=== PATIENT | male | born 1995 | race Caucasian/White ===

== ENCOUNTER 2018-03-22 14:16 | Emergency (ER) | payer SELFPAY ==
[~2018-03-22] VITALS: Ht 185.4 cm; Wt 77.1 kg
[2018-03-22 15:27] LABS: BASO # 0.1 x10^3/uL (0.0-0.2); BASO % 1 % (0-3); EOS # 0.2 x10^3/uL (0.0-0.7); EOS % 4 % (0-3); HEMATOCRIT 42.3 % (39.0-53.0); HEMOGLOBIN 14.6 g/dL (13.0-17.5); LYMPH # 1.9 x10^3/uL (1.0-4.8); LYMPH % 41 % (24-48); MEAN CORPUSCULAR HEMOGLOBIN 31 pg (25-35); MEAN CORPUSCULAR HGB CONC 35 g/dL (31-37); MEAN CORPUSCULAR VOLUME 89 fL (79-100); MONO # 0.4 x10^3/uL (0.0-1.1); MONO % 9 % (0-9); NEUT # 2.2 x10^3uL (1.8-7.7); NEUT % 46 % (31-73); PLATELET COUNT 234 x10^3/uL (140-400); RED BLOOD COUNT 4.74 x10^6/uL (4.30-5.70); RED CELL DISTRIBUTION WIDTH 14.1 % (11.5-14.5); WHITE BLOOD COUNT 4.8 x10^3/uL (4.0-11.0)
[2018-03-22 15:37] LABS: CALCIUM 9.3 mg/dL (8.5-10.1); CREATININE 1.1 mg/dL (0.7-1.3); GFR 84.5; POTASSIUM 3.5 mmol/L (3.5-5.1)
[2018-03-22 15:43] LABS: ALBUMIN 4.6 g/dL (3.4-5.0); ALBUMIN/GLOBULIN RATIO 1.3 (1.0-1.7); TOTAL BILIRUBIN 0.4 mg/dL (0.2-1.0); TOTAL PROTEIN 8.2 g/dL (6.4-8.2)
[2018-03-22 16:43] LABS: PROTHROMBIN TIME PATIENT 13.7 SEC (11.7-14.0)
[2018-03-22 17:15] VITALS: BP 127/77
[2018-03-22 17:19] LABS: BARBITURATES NEG (NEG); BENZODIAZEPINES POS (NEG); CANNABINOIDS POS (NEG); COCAINE POS (NEG); METHADONE NEG (NEG); OPIATES NEG (NEG); PHENCYCLIDINE NEG (NEG)
[2018-03-22 17:22] LABS: AMPHETAMINE/METHAMPHETAMINE NEG (NEG)
--- NOTE | 2018-03-22 17:24 | PHYS DOC ---
Past Medical History Past Medical History: Anxiety, Seizure, Other Additional Past Medical Histor: COCAINE OVERDOSE Past Surgical History: No Surgical History Alcohol Use: Heavy Drug Use: Cocaine, Marijuana Social History Narrative: "LEAN" Adult General Chief Complaint Chief Complaint: HEMATEMESIS/VOMITING BLOOD HPI HPI 22-year-old male presenting with vomiting blood. He says he has been throwing up or looks like tobacco so she's been having black stool. He says "is that bad " He's been drinking alcohol fairly heavily he says he has to drink everyday to go outside he is anxiety he gets depressed he try to hurt himself last year he is not currently suicidal but he would like to talk to a therapist. Review of Systems Review of Systems Review of systems otherwise noted except as noted in the history of present illness specifically no chest pain no shortness of breath really no abdominal pain just the vomiting and the dark stool per his report he refused rectal examination he denies dysuria he denies suicidal ideation at this time Current Medications Current Medications No daily medications denies previous medical history does drink heavily. Physical Exam Physical Exam General physical examination well-appearing. No apparent distress Respiratory normal work of breathing no increased work of breathing no chest wall tenderness or crepitus HEENT moist mucous membranes trach is in the midline no trauma was seen Abdomen soft nontender nondistended patient refused rectal examination no masses were identified Extremities there is no edema no trauma no cyanosis no asymmetry Skin warm well perfused dry no rash multiple tattoos Psych calm and cooperative depressed denies SI Eyes pupils equal round and reactive to light extraocular movements intact Current Patient Data Vital Signs Vital Signs Date Time Temp Pulse Resp B/P (MAP) Pulse Ox O2 Delivery O2 Flow Rate FiO2 03/22/18 14:30 98.4 69 19 140/72 (94) 100 Room Air 98.4 Lab Values Laboratory Tests Test 03/22/18 15:19 03/22/18 15:56 03/22/18 17:04 White Blood Count 4.8 x10^3/uL (4.0-11.0) Red Blood Count 4.74 x10^6/uL (4.30-5.70) Hemoglobin 14.6 g/dL (13.0-17.5) Hematocrit 42.3 % (39.0-53.0) Mean Corpuscular Volume 89 fL (79-100) Mean Corpuscular Hemoglobin 31 pg (25-35) Mean Corpuscular Hemoglobin Concent 35 g/dL (31-37) Red Cell Distribution Width 14.1 % (11.5-14.5) Platelet Count 234 x10^3/uL (140-400) Neutrophils (%) (Auto) 46 % (31-73) Lymphocytes (%) (Auto) 41 % (24-48) Monocytes (%) (Auto) 9 % (0-9) Eosinophils (%) (Auto) 4 % (0-3) H Basophils (%) (Auto) 1 % (0-3) Neutrophils # (Auto) 2.2 x10^3uL (1.8-7.7) Lymphocytes # (Auto) 1.9 x10^3/uL (1.0-4.8) Monocytes # (Auto) 0.4 x10^3/uL (0.0-1.1) Eosinophils # (Auto) 0.2 x10^3/uL (0.0-0.7) Basophils # (Auto) 0.1 x10^3/uL (0.0-0.2) Sodium Level 146 mmol/L (136-145) H Potassium Level 3.5 mmol/L (3.5-5.1) Chloride Level 106 mmol/L (98-107) Carbon Dioxide Level 29 mmol/L (21-32) Anion Gap 11 (6-14) Blood Urea Nitrogen 11 mg/dL (8-26) Creatinine 1.1 mg/dL (0.7-1.3) Estimated GFR (Cockcroft-Gault) 84.5 BUN/Creatinine Ratio 10 (6-20) Glucose Level 96 mg/dL (70-99) Calcium Level 9.3 mg/dL (8.5-10.1) Total Bilirubin 0.4 mg/dL (0.2-1.0) Aspartate Amino Transferase (AST) 60 U/L (15-37) H Alanine Aminotransferase (ALT) 52 U/L (16-63) Alkaline Phosphatase 72 U/L (46-116) Total Protein 8.2 g/dL (6.4-8.2) Albumin 4.6 g/dL (3.4-5.0) Albumin/Globulin Ratio 1.3 (1.0-1.7) Lipase 70 U/L (73-393) L Ethyl Alcohol Level < 10 mg/dL (0-10) Prothrombin Time 13.7 SEC (11.7-14.0) Prothrombin Time INR 1.1 (0.8-1.1) Urine Opiates Screen Neg (NEG) Urine Methadone Screen Neg (NEG) Urine Barbiturates Neg (NEG) Urine Phencyclidine Screen Neg (NEG) Urine Amphetamine/Methamphetamine Neg (NEG) Urine Benzodiazepines Screen Pos (NEG) Urine Cocaine Screen Pos (NEG) Urine Cannabinoids Screen Pos (NEG) Urine Ethyl Alcohol Neg (NEG) Laboratory Tests 03/22/18 15:19 Laboratory Tests 03/22/18 15:19 EKG EKG [] Radiology/Procedures Radiology/Procedures [] Course & Med Decision Making Course & Med Decision Making 22-year-old with reported hematemesis and black stool he refused rectal exam hemoglobin is normal I doubt he is having acute GI bleed he has been drinking alcohol he is anxious and depressed he requested to see psychiatric assessment services he was seen by [facility] who thinks he is safe to go home he was provided with resources for psych in detox as well. Clayton Disclaimer Clayton Disclaimer This electronic medical record was generated, in whole or in part, using a voice recognition dictation system. Departure Departure Impression: Primary Impression: Anxiety Disposition: 01 HOME, SELF-CARE Condition: IMPROVED TOMA SMITH MD Mar 22, 2018 17:24
== END 2018-03-22 17:18 | disposition home or self-care (01) ==
LOC: ER 14:16
DX: F41.9 Anxiety disorder, unspecified (principal); K92.0 Hematemesis; F32.9 Major depressive disorder, single episode, unspecified; F10.20 Alcohol dependence, uncomplicated; Y90.9 Presence of alcohol in blood, level not specified
CPT/HCPCS: 36415; 80053; 80307; 83690; 85025; 85610; 99284; G0480; G0479